=== PATIENT | female | born 1965 | race Caucasian/White ===

== ENCOUNTER 2022-08-21 09:52 | Day surgery (SDC) | payer SELFPAY ==
[2022-08-14 16:23] VITALS: BMI 44.6
[~2022-08-21 09:52] MED LIST: LACTATED RINGERS SOLUTION 1,000 ML IV SCH; ONDANSETRON 4 MG/2 ML VIAL IVPUSH PRN; PROMETHAZINE HCL 25 MG/1 ML VIAL IVPB PRN
[2022-08-21] MEDS ORDERED: MIDAZOLAM HCL 2 MG/2 ML SINGLE DOSE VIAL ONE (11:30)
[2022-08-21] MEDS ORDERED: HEPARIN NA (PORCINE) 5,000 UNITS/ML 1ML VIAL ONE (12:04)
[2022-08-21] MEDS ORDERED: ACETAMINOPHEN INJECTION 100 ML IVPB ONE (12:09)
[2022-08-21] MEDS ORDERED: BUPIVACAINE HCL/PF 0.25% (2.5MG/ML) 10 ML VIAL ONE (12:15)
[2022-08-21] MEDS ORDERED: HEPARIN NA (PORCINE) 5,000 UNITS/ML 1ML VIAL SQ ONE ×2 (12:15→12:30)
[2022-08-21] MEDS ORDERED: BACITRACIN ZINC 15 GM TUBE TOPICAL OINTMENT ONE (12:15)
[2022-08-21] MEDS ORDERED: SEVOFLURANE 250 ML BTL ONE (12:16)
[2022-08-21] MEDS ORDERED: KETOROLAC TROMETHAMINE 30 MG/1 ML VIAL ONE (12:18)
[2022-08-21] MEDS ORDERED: LIDOCAINE HCL 1%, 10 MG/ML (20ML VIAL) ONE (12:22)
[2022-08-21] MEDS ORDERED: GLYCOPYRROLATE 0.2 MG/1 ML VIAL ONE (13:40)
[2022-08-21] MEDS ORDERED: NEOSTIGMINE METHYLSULFATE 0.5 MG/1 ML - 10 ML MDV ONE (13:40)
[2022-08-21] MEDS ORDERED: ROCURONIUM BROMIDE 50 MG/5 ML SYRINGE ONE (14:37)
[2022-08-21] MEDS ORDERED: BUPIVACAINE HCL/PF 0.25% (2.5MG/ML) 10 ML VIAL IJ ONE (14:50)
[2022-08-21] MEDS ORDERED: NITROGLYCERIN 2% OINTMENT - 1GM PACKET TD ONE (15:57)
[2022-08-21] MEDS ORDERED: HYDROmorphone HCL/PF 1 MG/ML VIAL ONE (15:58)
[2022-08-21] MEDS ORDERED: ONDANSETRON 4 MG/2 ML VIAL IVPB PRN (17:02)
[2022-08-21] MEDS ORDERED: HYDROmorphone HCl 2 MG/ML VIAL IVPUSH PRN (17:06)
[2022-08-21] MEDS ORDERED: morphine CARPU-JECT 2 MG/1 ML DISP.SYRIN IVPUSH PRN (17:10)
[2022-08-21] MEDS ORDERED: LACTATED RINGERS SOLUTION 1,000 ML IV SCH (17:15)
[2022-08-21] MEDS: CLINDAMYCIN 900 MG PREMIX IVPB 900 MG/50 ML BAG IVPB SCH (17:47)
[2022-08-21] MEDS ORDERED: CEFAZOLIN 1 GM/D5W 50 ML IVPB SCH (21:00)
[2022-08-21] MEDS ORDERED: HEPARIN NA (PORCINE) 5,000 UNITS/ML 1ML VIAL SQ SCH (22:00)
[2022-08-21] MEDS: oxyCODONE HCL 5 MG TABLET PO PRN (22:10)
[2022-08-22] MEDS: CLINDAMYCIN 900 MG PREMIX IVPB 900 MG/50 ML BAG IVPB SCH ×2 (02:01→09:56)
[2022-08-22 03:08] VITALS: RESP 18
[2022-08-22] MEDS: oxyCODONE HCL 5 MG TABLET PO PRN ×2 (05:16→10:01)
[2022-08-22] MEDS ORDERED: ALBUTEROL SO4 HFA INHALER IH PRN (07:21)
[2022-08-22 08:52] LABS: HEMATOCRIT 36.3 % (32.4-45.2); MCH 26.9 pg (25.7-33.7); MCHC 32.9 g/dl (32.0-36.0); MEAN CELL VOLUME 81.6 fl (80-96); MEAN PLT VOLUME 8.2 fl (7.5-11.1); PLATELET COUNT 291.1 10^3/uL (134-434); RBC 4.45 10^6/uL (3.60-5.2); RDW 15.2 % (11.6-15.6); WHITE BLOOD COUNT 11.1 10^3/uL (4.0-10.8)
[2022-08-22] MEDS ORDERED: ENOXAPARIN NA (PORCINE) 40 MG/0.4 ML DISP.SYRIN SQ ONE ×2 (13:49→14:00)
[2022-08-22 14:37] VITALS: BP 122/78; PULSE 91; TEMP 99
== END 2022-08-22 16:21 | disposition home or self-care (01) ==
LOC: FASU 09:52 → FASUSAT 09:52 → FM/S 18:28 → FASUSAT 08-22 16:21
PROVIDERS: ATTEND Plastic Surgery
PROC: 0J083ZZ Alteration of Abdomen Subcutaneous Tissue and Fascia, Percutaneous Approach (ICD-10-PCS; 2022-08-21)
PROC: 0JB80ZZ Excision of Abdomen Subcutaneous Tissue and Fascia, Open Approach (ICD-10-PCS; principal; 2022-08-21 12:59)
DX: M95.8 Other specified acquired deformities of musculoskeletal system (principal)
CPT/HCPCS: 36415; 85027; 94760; J1644

== ENCOUNTER 2022-09-06 10:21 | Emergency (ER) | payer OTHER ==
[2022-09-06 10:36] VITALS: BP 117/82; PULSE 75; RESP 16; TEMP 98; BMI 44.1
[2022-09-06 11:25] LABS: INR 1.43 (0.83-1.09); PROTHROMBIN TIME (PATIENT) 16.5 SEC (9.7-13.0)
[2022-09-06 11:28] LABS: ALBUMIN 3.2 g/dl (3.4-5.0); BILIRUBIN,TOTAL 0.4 mg/dl (0.2-1); CALCIUM 8.7 mg/dl (8.5-10); CREATININE 0.5 mg/dl (0.55-1.3); TOT PROT 6.8 g/dl (6.4-8.2)
[2022-09-06 12:20] LABS: BASO % 0.5 % (0-2.0); EOS % 1.5 % (0-4.5); HEMATOCRIT 33.1 % (32.4-45.2); HEMOGLOBIN 11.3 GM/dL (10.7-15.3); LYMPH % 29.3 % (8-40); MEAN CELL VOLUME 79.4 fl (80-96); MEAN PLT VOLUME 8.6 fl (7.5-11.1); MONO % 9.4 % (3.8-10.2); NEUT % 59.3 % (42.8-82.8); PLATELET COUNT 390 10^3/uL (134-434); RBC 4.17 M/mm3 (3.60-5.2); RDW 14.4 % (11.6-15.6); WHITE BLOOD COUNT 9.6 K/mm3 (4.0-10.0)
[2022-09-06 12:49] LABS: N-TERMINAL BNP 62.8 pg/ml (5-125)
== END 2022-09-06 13:21 | disposition home or self-care (01) ==
LOC: FER 10:21
DX: R60.0 Localized edema (principal); R06.02 Shortness of breath
CPT/HCPCS: 36415; 71045-TC-FY; 71275-TC; 80053; 83880; 84484; 85025; 85610; 85730; 93005; 93970-TC; 99285-25; Q9967